=== PATIENT | male | born 1965 | race Caucasian/White ===

== ENCOUNTER 2016-12-07 22:55 | Emergency (ER) | payer BC, OTHER ==
[~2016-12-07] VITALS: Ht 177.8 cm; Wt 92.3 kg
[2016-12-08 00:11] VITALS: BP 153/98
--- NOTE | 2016-12-08 07:47 | Diagnostic Imaging Report ---
INDICATION: Fall. FINDINGS: Three views of the right wrist show no fracture, dislocations or other bony abnormalities. Articulating surfaces are smooth. IMPRESSION: Normal right wrist. Dictated by: Dictated on workstation # [id number]
--- NOTE | 2016-12-08 07:53 | Diagnostic Imaging Report ---
INDICATION: Fell from ladder. FINDINGS: 3 views show ankle mortise in good alignment. Articulating surfaces are smooth. There are no fractures. No soft tissue swelling demonstrated. IMPRESSION: Normal right ankle. Dictated by: Dictated on workstation # [id number]
== END 2016-12-08 00:06 | disposition home or self-care (01) ==
LOC: ED 22:59
DX: S93.401A Sprain of unspecified ligament of right ankle, initial encounter (principal); S63.501A Unspecified sprain of right wrist, initial encounter; W11.XXXA Fall on and from ladder, initial encounter; Y92.22 Religious institution as the place of occurrence of the external cause
CPT/HCPCS: 73110; 73610; 99282; 99283